=== PATIENT | male | born 1990 | race Caucasian/White ===

== ENCOUNTER 2017-06-01 22:38 | Inpatient (IN) | payer SELFPAY ==
--- NOTE | 2017-06-01 23:41 | EDPHY ---
H & P Stated Complaint: "think I got poisoned 2 days ago" Source: Patient Exam Limitations: No limitations - Personal History Current Tetanus/Diphtheria Vaccine: Yes - Medical/Surgical History Hx Asthma: No Hx Chronic Respiratory Disease: No Hx Diabetes: No Hx Cardiac Disease: No Hx Renal Disease: No Hx Cirrhosis: No Hx Alcoholism: No Hx HIV/AIDS: No Hx Splenectomy or Spleen Trauma: No Other PMH: hypoparathyroid, hypothyroidism - Social History Smoking Status: Former smoker Time Seen by Provider: 06/01/17 23:12 HPI/ROS: HPI The patient presents with concern that he has been poisoned. He spoke with his mother and [facility] in both encouraged him to come to the emergency department for evaluation. The patient says that a few days ago at [facility] his friends were joking with each other and seemed to be conspiring against him, he is concerned they may have put some poison into in his meal. He noticed that they were not eating leftovers from the meal and this raised his suspicion. Also, he noticed that his friends were burning a candle that had a metallic silver appearance to it. He did some research and felt this may be a mercury containing poison that may hurt him. He says over the last few days he has been reflecting on his life over the last few years. He says many years ago he was dating a woman and was in a very toxic relationship. He feels as if she is sabotaging him. He says he is feeling paranoid in general. Over the last 1 week he has felt extreme highs and lows. He is not sleeping much or eating much. As he was concerned that marijuana use could be causing his paranoia, so he stopped 2 days ago, but feels the same. He says he is feeling suicidal and wants to return home to [place] where he is from. He moved out here 1 and half months ago to live with a friend. He does have a history of depression and suicidality and high school. He is not on any medications for this. 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 REVIEW OF SYSTEMS Constitutional: No fever, no chills. Eyes: No discharge. ENT: No sore throat. Cardiovascular: No chest pain, no palpitations. Respiratory: No cough, no shortness of breath. Gastrointestinal: No abdominal pain, no vomiting. Genitourinary: No hematuria. Musculoskeletal: No back pain. Skin: No rashes. Neurological: No headache. PMHx: Hypoparathyroidism, last had his calcium checked in [place] about a month and a half ago with calcium of 4.4, says his calcium normally run at about 6, intermittently compliant with supplemental calcium Soc Hx: Recently relocated from [place], marijuana use, no alcohol use recently, denies drug use PHYSICAL General Appearance: Alert, no distress Eyes: Pupils equal and round no pallor or injection ENT, Mouth: Mucous membranes moist Respiratory: There are no retractions, lungs are clear to auscultation Cardiovascular: Regular rate and rhythm Gastrointestinal: Abdomen is soft and non-tender, no masses, bowel sounds normal Neurological: A&O, moves all extremities Skin: Warm and dry, no rashes Musculoskeletal: Neck is supple non tender Extremities: symmetrical, full range of motion Psychiatric: Patient is oriented X 3, there is no agitation, there is poor eye contact, tearful occasionally during exam (Ileana Gomez) Constitutional: Initial Vital Signs Temperature (C) 36.6 C 06/01/17 22:40 Heart Rate 82 06/01/17 22:40 Respiratory Rate 18 06/01/17 22:40 Blood Pressure 111/81 H 06/01/17 22:40 O2 Sat (%) 96 06/01/17 22:40 O2 Delivery Mode Room Air Allergies/Adverse Reactions: No Known Allergies Allergy (Unverified 06/01/17 22:44) Home Medications: Medication Instructions Recorded CALCIUM 06/01/17 PHOSLO 06/01/17 Medical Decision Making - Diagnostics EKG Interpretation: EKG: Complete interpretation has been separately recorded in the [facility] archive. Summary impression: NSR, QTc 466 (Ileana Gomez) Differential Diagnosis: 26-year-old man, history of depression and high school, hypoparathyroidism, presenting with increasing paranoia over last few days, concern about being poisoned, with suicidal thoughts without any clear plan. Wants to return to [place] to his family, however does not have the means to do so. Differential diagnosis includes decompensated depression, psychosis, marijuana abuse. In the emergency department, placement was placed on a detainer. Labs were checked and did reveal low calcium, on par with prior levels per his report. Is not surprising given his lack of calcium supplementation lately. He does not seem to have any symptoms of hypocalcemia. EKG was performed and did reveal QT prolongation at about 500. Because of this, he was given calcium gluconate 2 g IV, repeat calcium was slightly improved though not normal. I do not believe his low calcium is contributing to his current presentation. I consulted with the hospitalist about this, Dr. Umana. He explained that it may take several days to have the patient's calcium reach a normal level. The patient seems to be chronically hypocalcemic from his hypoparathyroidism. He recommends the patient get additional calcium in the emergency department in addition to vitamin-D. He does not recommend admission to the hospital given the patient is asymptomatic and this is a chronic problem for him. The patient was given additional calcium gluconate, repeat EKG was unremarkable. QTc has improved somewhat. He is deemed medically clear for psychiatric evaluation. At 7:00 a.m., the case is signed out to the oncoming provider Dr. Gupta. ( Ileana Gomez) Other Provider: I assumed care of the patient at 7 o'clock in the morning pending psychiatric evaluation. I reviewed the patient's presentation and briefly evaluated the patient. He is acutely psychotic. I have placed the patient on M1 psychiatric hold. The patient was medically cleared by Dr. Gomez and is currently pending psychiatric evaluation.. Update at 10:50 a.m.: The patient was evaluated by Psychiatry and has been accepted for inpatient psychiatric admission at [facility] by Dr. Thomas. I have filled out the EMTALA transfer form. Clinical impression is bipolar mood disorder with acute psychosis. (Oleksandr Gupta) - Data Points Laboratory Results: Laboratory Results 06/01/17 23:45 06/01/17 23:45 06/02/17 06/02/17 06/02/17 03:40 01:15 01:15 WBC RBC Hgb Hct MCV MCH MCHC RDW Plt Count MPV Neut % (Auto) Lymph % (Auto) Barton % (Auto) Eos % (Auto) Baso % (Auto) Nucleat RBC Rel Count Absolute Neuts (auto) Absolute Lymphs (auto) Absolute Monos (auto) Absolute Eos (auto) Absolute Basos (auto) Absolute Nucleated RBC Immature Gran % Immature Gran # Sodium Potassium Chloride Carbon Dioxide Anion Gap BUN Creatinine Estimated GFR Glucose Calcium Ionized Calcium 0.74 MMOL/L L* MMOL/L 0.64 MMOL/L L* MMOL/L (1.12-1.30) (1.12-1.30) Phosphorus TSH Urine Opiates Screen NEGATIVE (NEGATIVE) Urine Barbiturates NEGATIVE (NEGATIVE) Ur Phencyclidine Scrn NEGATIVE (NEGATIVE) Ur Amphetamine Screen NEGATIVE (NEGATIVE) U Benzodiazepines Scrn NEGATIVE (NEGATIVE) Urine Cocaine Screen NEGATIVE (NEGATIVE) U Marijuana (THC) Screen NON-NEGATIVE H (NEGATIVE) Ethyl Alcohol 06/01/17 06/01/17 23:45 23:45 WBC 7.14 10^3/uL 10^3/uL (3.80-9.50) RBC 4.80 10^6/uL 10^6/uL (4.40-6.38) Hgb 15.8 g/dL g/dL (13.7-17.5) Hct 42.4 % % (40.0-51.0) MCV 88.3 fL fL (81.5-99.8) MCH 32.9 pg pg (27.9-34.1) MCHC 37.3 g/dL H g/dL (32.4-36.7) RDW 12.2 % % (11.5-15.2) Plt Count 207 10^3/uL 10^3/uL (150-400) MPV 9.7 fL fL (8.7-11.7) Neut % (Auto) 66.9 % % (39.3-74.2) Lymph % (Auto) 21.3 % % (15.0-45.0) Barton % (Auto) 8.8 % % (4.5-13.0) Eos % (Auto) 2.1 % % (0.6-7.6) Baso % (Auto) 0.8 % % (0.3-1.7) Nucleat RBC Rel Count 0.0 % % (0.0-0.2) Absolute Neuts (auto) 4.77 10^3/uL 10^3/uL (1.70-6.50) Absolute Lymphs (auto) 1.52 10^3/uL 10^3/uL (1.00-3.00) Absolute Monos (auto) 0.63 10^3/uL 10^3/uL (0.30-0.80) Absolute Eos (auto) 0.15 10^3/uL 10^3/uL (0.03-0.40) Absolute Basos (auto) 0.06 10^3/uL 10^3/uL (0.02-0.10) Absolute Nucleated RBC 0.00 10^3/uL 10^3/uL (0-0.01) Immature Gran % 0.1 % % (0.0-1.1) Immature Gran # 0.01 10^3/uL 10^3/uL (0.00-0.10) Sodium 141 mEq/L mEq/L (134-144) Potassium 4.6 mEq/L mEq/L (3.5-5.2) Chloride 101 mEq/L mEq/L (97-110) Carbon Dioxide 23 mEq/l mEq/l (22-31) Anion Gap 17 mEq/L H mEq/L (8-16) BUN 20 mg/dL mg/dL (7-23) Creatinine 0.8 mg/dL mg/dL (0.7-1.3) Estimated GFR > 60 Glucose 93 mg/dL mg/dL (70-100) Calcium 5.2 mg/dL L* mg/dL (8.5-10.4) Ionized Calcium Phosphorus 7.1 mg/dL H mg/dL (2.5-4.5) TSH 2.130 uIU/mL uIU/mL (0.465-4.680) Urine Opiates Screen Urine Barbiturates Ur Phencyclidine Scrn Ur Amphetamine Screen U Benzodiazepines Scrn Urine Cocaine Screen U Marijuana (THC) Screen Ethyl Alcohol < 10 mg/dL mg/dL (0-10) Medications Given: Discontinued Medications Cholecalciferol (Vitamin D) 2,000 units PO EDNOW ONE Stop: 06/02/17 04:31 Last Admin: 06/02/17 04:49 Dose: 2,000 units Calcium Gluconate (Calcium Gluconate 1 Gm (Premix)) 50 mls @ 100 mls/hr IV EDNOW ONE Stop: 06/02/17 01:12 Last Admin: 06/02/17 01:25 Dose: 50 mls Calcium Gluconate (Calcium Gluconate 1 Gm (Premix)) 50 mls @ 100 mls/hr IV ONCE ONE Stop: 06/02/17 02:03 Last Admin: 06/02/17 02:17 Dose: 50 mls Calcium Gluconate 2 gm/ Sodium (Chloride) 70 mls @ 140 mls/hr IV EDNOW ONE Stop: 06/02/17 05:29 Last Admin: 06/02/17 04:50 Dose: 70 mls Departure - Departure Disposition: [facility] IP Clinical Impression: Suicidal ideation, Hypocalcemia, Paranoia Hypoparathyroidism Qualifiers: Hypoparathyroidism type: idiopathic Qualified Code(s): E20.0 - Idiopathic hypoparathyroidism Bipolar mood disorder Qualifiers: Active/Remission status: currently active Current bipolar episode type: mixed Current episode severity: severe Psychotic features: with psychotic features Qualified Code(s): F31.64 - Bipolar disorder, current episode mixed, severe, with psychotic features Psychosis Qualifiers: Schizoaffective disorder type: bipolar Condition: Fair Instructions: Depression (ED) Referrals: NONE *PRIMARY CARE P,. [Primary Care Provider] - As per Instructions
[2017-06-02 00:12] LABS: % IMMATURE GRANULYOCYTES 0.1 % (0.0-1.1); ABSOLUTE IMMATURE GRANULOCYTES 0.01 10^3/uL (0.00-0.10); ADD DIFF? NO; ADD MORPH? NO; ADD SCAN? NO; ATYPICAL LYMPHOCYTE FLAG 0 (0-99); FRAGMENT RBC FLAG 0 (0-99); HEMATOCRIT 42.4 % (40.0-51.0); HEMOGLOBIN 15.8 g/dL (13.7-17.5); LEFT SHIFT FLG 0 (0-99); LIPEMIA HEMOLYSIS FLAG 90 (0-99); MEAN CELL HEMOGLOBIN 32.9 pg (27.9-34.1); MEAN CELL HEMOGLOBIN CONCENTR. 37.3 g/dL (32.4-36.7); MEAN CELL VOLUME 88.3 fL (81.5-99.8); MEAN PLATELET VOLUME 9.7 fL (8.7-11.7); PLATELET CLUMPS FLAG 0 (0-99); PLATELET COUNT 207 10^3/uL (150-400); RED CELL DISTRIBUTION WIDTH 12.2 % (11.5-15.2)
[2017-06-02 00:17] LABS: ANION GAP 17 mEq/L (8-16); CARBON DIOXIDE 23 mEq/l (22-31); CHLORIDE 101 mEq/L (97-110); CREATININE 0.8 mg/dL (0.7-1.3); ETHANOL SERUM < 10 mg/dL (0-10); GLOMERULAR FILTRATION RATE > 60; GLUCOSE 93 mg/dL (70-100); POTASSIUM 4.6 mEq/L (3.5-5.2); SODIUM 141 mEq/L (134-144)
[2017-06-02 00:18] LABS: CALCIUM 5.2 mg/dL (8.5-10.4)
--- NOTE | 2017-06-02 00:41 | CPEKG ---
Heart Rate: 54 RR Interval: 1111 P-R Interval: 204 QRSD Interval: 106 QT Interval: 540 QTC Interval: 512 P [place]: 29 QRS [place]: -35 T Wave [place]: -16 EKG Severity - ABNORMAL ECG - EKG Impression: SINUS RHYTHM EKG Impression: BORDERLINE IVCD WITH LAD EKG Impression: NONSPECIFIC T ABNORMALITIES, INFERIOR LEADS EKG Impression: PROLONGED QT INTERVAL Electronically Signed By: Oleksandr Gupta 02-Jun-2017 11:05:52
[2017-06-02] MEDS ORDERED: CALCIUM GLUCONATE 50 ML IV ONE ×2 (00:43→01:34)
[2017-06-02 01:27] LABS: IONIZED CALCIUM 0.64 MMOL/L (1.12-1.30)
[2017-06-02 03:54] LABS: IONIZED CALCIUM 0.74 MMOL/L (1.12-1.30)
[2017-06-02] MEDS ORDERED: CALCIUM GLUCONATE 2 GM in NS 50 ML IV ONE ×2 (04:28→05:00)
[2017-06-02] MEDS ORDERED: CHOLECALCIFEROL VIT D3 2,000 UNITS TAB/CAP PO ONE (04:30)
[2017-06-02] MEDS ORDERED: OLANZapine DISINTEGR 10 MG TAB PO PRN (12:41)
[2017-06-02] MEDS ORDERED: NICOTINE POLACRILEX 2 MG GUM B PRN (12:41)
[2017-06-02] MEDS ORDERED: MAG HYDROX/AL HYDROX/SIMETH 30 ML UDCUP PO PRN (12:41)
[2017-06-02] MEDS ORDERED: LORazepam 0.5 MG TAB PO PRN (12:41)
[2017-06-02] MEDS ORDERED: OLANZapine DISINTEGR 5 MG TAB PO ONE (14:12)
--- NOTE | 2017-06-02 15:15 | BAPA ---
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 He is originally from [place]. CHIEF COMPLAINT: "I want to know if I was poisoned." HISTORY OF PRESENT ILLNESS: The patient is a poor historian. Basically, the patient reports that he moved to [place] about 2 months ago to live with a friend from [place] whom he had grown up with. This friend moved to [place] 2 years ago. The patient reports that prior to coming to [place], he had experienced paranoia for about four years, that an ex-girlfriend was attempting to destroy his life, was attempting to cause him to kill himself, and was messing with his thoughts and his emotions. After arriving in [place] 2 months ago, he felt well. He said he was using yoga daily. He was also hiking daily and working and had an elevated mood, elevated energy, elevated activity, and decreased need for sleep. He then started smoking cannabis daily. 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 He reports around Thanksgiving having strange ideas that his roommates and their friends who were there for Thanksgiving dinner were poisoning him with mercury. He says this was based on ideas that he could read their minds, that they were thinking about poisoning him, and by odd movements they were making, were somehow related to him. He also reported finding droplets of a silver candle stick and felt like this may have been mercury used to poison him. He reports that he fears that he is losing his mind and that he is going insane. He reports racing thoughts, mood swings, brief suicidal thoughts to jump off a building or bridge. He denies any violent thoughts. He reports he feels anxious and fearful and has had trouble sleeping for several weeks. The patient's mother on the phone reports that the patient has had odd behaviors since a young age. Mother reports that the patient has had mood swings where he is sometimes elevated, euphoric, and stays up late at night. Other times he is irritable, agitated, yelling, and "having a tantrum," and other times making paranoid statements about being followed or monitored or harassed. The patient also has a history of depression according to the patient's mother. SUBSTANCE ABUSE HISTORY: The patient reports a long history of substance abuse for several years. He reports he used to drink alcohol daily to the point that he would feel physically ill and miss work. He reported he stopped drinking alcohol about 4 months ago. He reported he was drinking daily for up to 6 months at a time in the past. He reports he is using cannabis daily for the past 2 months that he has lived in [place]. He reports using LSD approximately 10 times in the past. He also reports abusing methamphetamines for "2 binges" in the past. He has not used any amphetamines, LSD, or hallucinogenic mushrooms recently. He reports he used to abuse ecstasy as well as hallucinogenic mushrooms in the past. PAST PSYCHIATRIC HISTORY: The patient denies any past psychiatric hospitalizations or any recent or past mental health treatment. However, he does report approximately a year and a half ago he stood on a bridge and cut his left arm while having suicidal thoughts and planned to jump off the bridge. He changed his mind and did not further harm himself or seek treatment. He also reports a year ago he had suicidal thoughts and held a gun to his head but didn't fire the gun. The patient denies other suicide attempts. He denies any history of violence toward others. He reports past arrests for failing to stop for an officer well long boarding, which is a form of skateboarding, in [place] around age 19. He also reports 1 arrest for cannabis possession in [place] several years ago. He denies any history of violent crimes or any other arrests. He denies being on probation or parole. The patient denies any past psychiatric medication trials. PAST MEDICAL HISTORY: The patient denies any traumatic brain injuries or seizures. He has a history of hypoparathyroidism with hypocalcemia since age 17. He reports he normally takes calcium with vitamin D twice a day for this condition. He reports he has congenital hypoparathyroidism and has never had any type of surgery on his neck. Of note, in the emergency department, the patient has hypocalcemia. The patient did receive oral vitamin D as well as intravenous calcium for the treatment of hypocalcemia in the emergency department. His EKG showed prolonged QTc interval and IVCD thought to be be secondary to hypocalcemia. ALLERGIES: No known drug allergies. MEDICATIONS: Calcium with vitamin D twice a day is his only current medication prior to admission. SOCIAL HISTORY: The patient was raised by his mother and stepfather whom he refers to as his father in [place]. He denies abuse or neglect during childhood. He graduated from high school. 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 He has never been , has no children, has never been in the . He lives with 3 male roommates. The patient did sign a release information for his mother in [place], who was contacted from the inpatient unit. Patient denies currently owning a gun. FAMILY HISTORY: The patient reports his mother has a history of depression, anxiety, and he has a half-sister who has problems with depression. He denies any family history of suicide or severe mental illness. The notes from the emergency room indicate the patient's uncle had a history of alcoholism. PHYSICAL EXAMINATION: VITAL SIGNS: Blood pressure 125/79, heart rate 72, respiratory rate 14, pulse oximetry 98% on room air, temperature afebrile. MENTAL STATUS: He is an alert, white male in no acute distress. He is ambulatory. He has fair eye contact. He has a tattoo on his left forearm. He has no focal weakness. He appears healthy. His speech is regular rate and rhythm. His thoughts are tangential and rambling. He describes paranoid ideas of reference to being watched or monitored by others as well as being poisoned by people in his household as well as paranoia that an ex-girlfriend is attempting to cause him to go insane and cause him to kill himself. He describes his mood as "upset." His affect is preoccupied and distracted. His speech is with a soft voice, regular rate and rhythm. He denies auditory or visual hallucinations. He endorses paranoia with paranoid ideas of references. He may have been having visual hallucinations prior to admission. His insight appears to be limited. His judgment appears to be impaired. LABS: White blood cell count 7.1, hemoglobin 15.8, platelet 207. Sodium 141, potassium 4.6, creatinine 0.8, glucose 93, calcium was initially 5.2, ionized calcium was 0.74. These are both low. Phosphorus 7.1. TSH 2.1. Urine drug screen was positive for cannabis only. ASSESSMENT: 1. Unspecified schizophrenia spectrum disorder. Rule out cannabis related psychotic disorder. 2. Unspecified bipolar disorder. 3. Cannabis use disorder, severe. 4. History of alcohol, hallucinogen, and stimulant use disorders in the past. 5. Hypoparathyroidism with hypocalcemia. 6. Suicidal ideation. Overall, the assessment is that patient has a history of mood symptoms with depression and past suicidal ideation as well as probably hypomanic symptoms in the past. He has been abusing multiple substances over several years. Most recently, he has been using cannabis daily for the past 2 months. He is currently having paranoid ideas of reference as well as probable paranoid delusions that he is being poisoned. He also has paranoia regarding a female ex -girlfriend who lives in [place]. The patient is illogical and tangential with his thinking. The patient reports he is willing to take medication and get treatment in the unit, however. PLAN: 1. The patient is on M1 hold due to possible danger to himself as he reportedly made statements about jumping off a building or a bridge. He also reported a past suicide attempt of cutting himself about a year ago and possibly holding a gun to his head a year ago. The patient also appears to be gravely disabled due to psychotic thought disorder. 2. The patient is agreeable to start olanzapine 5 mg by mouth 1 tablet sublingual now and then another 5 mg tonight for psychotic disorder and possible bipolar disorder. We will then reassess the patient's symptoms tomorrow. The patient was given a handout from the [employer] on olanzapine. We reviewed the risk of tardive dyskinesia, neuroleptic malignant syndrome, extrapyramidal side effects, metabolic syndrome , and sedation with olanzapine as well as the risk of drug interaction. 3. I ordered p.r.n. olanzapine 5mg or p.r.n. agitation or psychosis, and hydroxyzine 25mg PRN for anxiety while in the unit. 4. The patient will be given calcium carbonate 500 mg p.o. twice daily along with vitamin D 2000 units p.o. twice daily for his hypocalcemia and hypoparathyroidism. The patient will be seen by an internal medicine provider tomorrow to clarify if the patient should have his calcium level and phosphorus rechecked. 5. Monitor the patient's ability to function and interact appropriately in the unit. If the patient does decide to stay in [place] after discharge, we will refer to [facility]. If possible, we will coordinate care with the patient's mother and stepfather regarding assisting him in return to [place] so that he could receive their support in getting outpatient mental health treatment after discharge. 6. I discussed extensively with the patient the risk of cannabis causing anxiety, panic, paranoia, hallucinations, and disorganized thinking and encouraged the patient to consider sobriety after discharge. /[id number]/MODL MTDD
[2017-06-02] MEDS: CALCIUM CARBONATE 500 MG TAB PO SCH (20:57)
[2017-06-02] MEDS: CHOLECALCIFEROL VIT D3 2,000 UNITS TAB/CAP PO SCH (20:58)
[2017-06-02] MEDS ORDERED: OLANZapine DISINTEGR 5 MG TAB PO SCH (21:00)
--- NOTE | 2017-06-03 07:38 | CPEKG ---
Heart Rate: 46 RR Interval: 1304 P-R Interval: 192 QRSD Interval: 110 QT Interval: 532 QTC Interval: 466 P Logan: 19 QRS Logan: -24 T Wave [place]: -11 EKG Severity - ABNORMAL ECG - EKG Impression: SINUS BRADYCARDIA EKG Impression: NONSPECIFIC INTRAVENTRICULAR CONDUCTION DELAY Electronically Signed By: Ileana Gomez 03-Jun-2017 07:39:47
--- NOTE | 2017-06-03 09:17 | SOAPPROG ---
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 Patient has a history of depressive symptoms, hypomania, and substance abuse for several years with one past suicide attempt (cut arm one year ago). Patient appears disorganized with paranoia and SI but compliant with Olanzapine. Plan: Increase scheduled Olanzapine ODT 10mg PO QHS Monitor behavior, paranoia, SI Patient on M-1 hold. Consider switch to voluntary status tomorrow or short term certification Continue Calcium and Vitamin D for hypocalcemia 06/03/17 09:17 Subjective: CC: 'empty, OK, suicidal if I'm poisoned' Reports SI due to fear of being poisoned with mercury or fear that a woman in [place] is attempting to 'make me go insane.' Denies plan to hurt self on unit. Reports tolerating Olanzapine yesterday without side effects and slept well overnight. Denies AH or VH. Reports anxiety and unsure if he wants to live or . Then reports wanting to travel back to [place] to see parents. Patient reported to nurses yesterday that he wanted to see parents prior to killing himself. Objective: Vital Signs Temp Pulse Resp BP Pulse Ox 36.7 C 88 14 100/67 98 06/03/17 06:00 06/03/17 06:00 06/03/17 06:00 06/03/17 06:00 06/03/17 06:00 Alert WM, ambulatory without slowing or tremor. Speech RRR. Mood 'empty, OK, suicidal if I'm poisoned' Affect odd, restricted, brief smiling with humor, later internal preoccupation. Reports SI due to fear of being poisoned with mercury or fear that a woman in [place] is attempting to 'make me go insane.' Denies plan to harm self on unit. Denies AH or VH or HI. Limited insight. Judgment impaired. Staff report patient complied with Olanzapine ODT 5mg twice yesterday. Patient slept overnight, isolative to room. - Time Spent With Patient Time Spent With Patient: 25 minutes - Pending Discharge Pending Discharge Within 24 Hours: No Pending Discharge Within 48 Hours: No ICD10 Worksheet Patient Problems: Problems Problem Status Onset Bipolar mood disorder Acute Cannabis use disorder, moderate, dependence Acute Hypocalcemia Acute Hypoparathyroidism Acute Paranoia Acute Psychosis Acute Suicidal ideation Acute
[2017-06-03] MEDS ORDERED: OLANZapine DISINTEGR 5 MG TAB PO SCH (09:23)
[2017-06-03] MEDS: CALCIUM CARBONATE 500 MG TAB PO SCH ×2 (10:38→20:10)
[2017-06-03] MEDS: CHOLECALCIFEROL VIT D3 2,000 UNITS TAB/CAP PO SCH ×2 (10:38→20:10)
[2017-06-03] MEDS: hydrOXYzine HCL 25 MG TAB PO PRN ×2 (11:07→20:10)
[2017-06-03] MEDS: CALCIUM ACETATE 667 MG CAP PO SCH (18:16)
[2017-06-03] MEDS: OLANZapine DISINTEGR 10 MG TAB PO SCH (20:10)
--- NOTE | 2017-06-04 00:02 | BCON ---
[f rep st] BEHAVIORAL HEALTH CONSULTATION INTERNAL MEDICINE CONSULTATION DATE OF CONSULTATION: 06/03/2017 REFERRING PHYSICIAN: HUGO PANDEY MD REASON FOR REFERRAL: Medical clearance for inpatient [facility] stay. HISTORY OF PRESENT ILLNESS: This patient came to the emergency department with concern that he had been poisoned. He thinks that his roommates may have poisoned him with mercury. He denies any acute symptoms of mercury toxicity, including no neurologic changes or tremor and no vision changes. He has chronic hypoparathyroidism and hypocalcemia which gives him chronic tingling in the extremities, and this has not changed. He reports he has been noncompliant with his medications for the hypoparathyroidism. Otherwise, he is without any acute complaints. PAST MEDICAL HISTORY: Hypoparathyroidism which he reports was diagnosed at age 15. PAST SURGICAL HISTORY: He has had wisdom teeth extraction. MEDICATIONS: He was taking calcium and vitamin D combination, PhosLo, and hydrochlorothiazide, but he had been noncompliant with his medications. SOCIAL HISTORY: He has recently moved from [place]. He lives with roommates in [place]. He is a marijuana user. 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 FAMILY HISTORY: Noncontributory for the purpose of this evaluation. REVIEW OF SYSTEMS: Other than as in HPI, he denies pain, cough, dyspnea, nausea , vomiting, constipation, or diarrhea. Otherwise, a 10-point review of systems is negative. PHYSICAL EXAM: VITAL SIGNS: Blood pressure is 100/67, heart rate is 88, respiratory rate is 14, oxygen saturation is 98% on room air. Temperature is 36.7 degrees centigrade. His weight is 74.4 kg for a body mass index of 22.9. GENERAL: This is a well-nourished, well-developed man sitting in a chair at the table in his room, cooperative and in no acute distress. HEENT: Extraocular movements are intact. Pupils are equal, round, and reactive to light. Mucous membranes are moist. Dentition is in good condition. There are no oropharyngeal mucosal lesions and no posterior oropharyngeal mucus. NECK: Supple. HEART: Regular rate and rhythm with no murmurs, rubs, or gallops. LUNGS: Clear to auscultation bilaterally. ABDOMEN: Benign. NEUROLOGIC: He is alert and oriented x3. Cranial nerves 2-12 are grossly intact. There is no focal weakness, and sensation is intact to light touch. LABORATORY STUDIES: Drawn in the emergency department, CBC was overall within normal limits. He had a very slight elevation of his anion gap at 17, of no clinical significance. Calcium was low at 5.2, and phosphorus was high at 7.1. He received calcium gluconate by IV in the emergency department, and his ionized calcium level was subsequently 0.64 and then finally 0.74. TSH was normal at 21.3. Toxicology in the serum was negative for ethyl alcohol, and the urine was non-negative for marijuana but otherwise negative for substances of abuse. CBC was overall within normal limits but for a slightly high mean cellular hemoglobin content of 37.3, of no clinical significance. ASSESSMENT/RECOMMENDATIONS: 1. Mental health issues pending further evaluation and management per Psychiatry and the mental health team. 2. Congenital hypoparathyroidism. I will resume his home dose of PhosLo for his elevated phosphorus. Continue calcium and vitamin D as currently ordered. He can follow up as an outpatient regarding adequacy of treatment for hypocalcemia and hyperphosphatemia. If treatment is not adequate, consider an activated vitamin D such as calcitriol. Given his blood pressures, I will not initiate hydrochlorothiazide at this point. He does not report a history of kidney stones. If there were kidney stones, there would be a stronger indication for the hydrochlorothiazide. 3. Marijuana abuse. I see no medical contraindications to this patient's continued stay on the inpatient behavioral health unit or to any psychiatric medications or procedures. Thank you very much for including me in the care of this patient, and please do not hesitate to contact me or the hospitalist service should there be need for further medical evaluation. /[id number]/MODL MTDD
--- NOTE | 2017-06-04 09:10 | SOAPPROG ---
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 Patient has a history of depressive symptoms, hypomania, and substance abuse for several years with one past suicide attempt (cut arm one year ago). Patient appears euthymic and denies SI. Patient has some residual paranoia and tangential thoughts but is cooperative with medications on unit and has been calm, but got PRN Hydroxyzine for anxiety yesterday. Plan: Continue Olanzapine ODT 10mg PO QHS Continue Hydroxyzine 25mg PRN anxiety and Olanzapine ODT PRN agitation/paranoia Monitor behavior, paranoia, judgment Continue Calcium, Vitamin D, PhosLo for hypocalcemia and hyperphosphatemia. Mercury level pending Patient agrees to voluntary treatment. Discontinue self-harm precautions. Discussed dangers of cannabis causing anxiety and psychosis 06/04/17 09:12 Subjective: "I'm OK.' Patient reports sleeping well overnight and eating breakfast, cooperated with AM blood draw. Denies feeling slowed or sedated by medication. Took PRN Hydroxyzine yesterday for anxiety. Reports prior to admission fearing that roommates were poisoning him with mercury, reports that he was reading their minds and that a silver candlestick was a message that he was poisoned. Reports a long history of mood swings prior to admission but today feels well and hopeful, denies suicidal thoughts. Denies AH on unit. Denies paranoia about food or medication on unit. Reports he wants to stay in [place] after discharge but wants to find a new apartment; reports he has a total of $1000 savings but parents may help him with an apartment deposit. Objective: Vital Signs Temp Pulse Resp BP Pulse Ox 36.2 C 68 16 128/66 H 98 06/04/17 06:00 06/04/17 06:00 06/04/17 06:00 06/04/17 06:00 06/04/17 06:00 Alert WM, cooperative and pleasant. Speech soft RRR, rambling at times. Thoughts tangential and perseverative. Denies SI or HI or AH. Mood 'good' affect euthymic and smiling. Reports paranoia about being poisoned with mercury and paranoid ideas of reference prior to admission, denies fear of being poisoned on unit. Reports being able to read peoples minds on unit. Limited insight. Appropriate judgment. Mercury level pending - Time Spent With Patient Time Spent With Patient: 30 minutes - Pending Discharge Pending Discharge Within 24 Hours: No Pending Discharge Within 48 Hours: No ICD10 Worksheet Patient Problems: Problems Problem Status Onset Bipolar mood disorder Acute Cannabis use disorder, moderate, dependence Acute Hypocalcemia Acute Hypoparathyroidism Acute Paranoia Acute Psychosis Acute Suicidal ideation Acute
[2017-06-04] MEDS: CALCIUM CARBONATE 500 MG TAB PO SCH (10:03)
[2017-06-04] MEDS: CALCIUM ACETATE 667 MG CAP PO SCH ×3 (10:03→21:41)
[2017-06-04] MEDS: CHOLECALCIFEROL VIT D3 2,000 UNITS TAB/CAP PO SCH ×2 (10:03→21:42)
[2017-06-04] MEDS: hydrOXYzine HCL 25 MG TAB PO PRN ×2 (10:05→16:44)
[2017-06-04] MEDS: ACETAMINOPHEN 325 MG TAB PO PRN (16:43)
[2017-06-04] MEDS: CALCITRIOL 0.25 MCG CAP PO SCH (21:41)
[2017-06-04] MEDS: OLANZapine DISINTEGR 10 MG TAB PO SCH (21:42)
[2017-06-05] MEDS: CALCIUM ACETATE 667 MG CAP PO SCH ×2 (08:41→20:35)
[2017-06-05] MEDS: CHOLECALCIFEROL VIT D3 2,000 UNITS TAB/CAP PO SCH ×2 (08:42→20:36)
--- NOTE | 2017-06-05 09:18 | SOAPPROG ---
SOAP Progress Note Assessment/Plan: Assessment: Schizoaffective Disorder Cannabis Use Disorder - severe History of stimulant, hallucinogen, and alcohol use disorders Hypoparathyroidism - on Calcium/PhosLo, Vitamin D, Calcitrol, HCTZ Patient admitted on M-1 hold for psychotic symptoms (paranoid ideas of reference , fear of being poisoned with mercury) and suicidal thoughts to jump of a bridge. Patient has a history of depressive symptoms, hypomania, and substance abuse for several years with one past suicide attempt (cut arm one year ago). Patient was using cannabis daily prior to admission. Patient appears euthymic but has some bizarre and paranoid thoughts, some continued SI related to fear of being poisoned with mercury by roommate. Plan: Patient currently voluntary Increase Olanzapine ODT 5mg SL QAM and 10mg SL QHS Mercury level pending Discussed dangers of cannabis causing anxiety and psychosis Monitor behavior, paranoia, SI 06/05/17 09:21 Subjective: Reports feeling 'alright.' Denies SI 'unless I am poisoned and someone is trying to make me go insane.' Reports continued fear that he was poisoned by roommate prior to admission. Reports feeling safe on unit and denies being fearful of staff. 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 Reports talking to parents on the phone. Denies mood swings or agitation. Reports prior to admission being stalked by [employer], being harrassed 'by the [employer],' and discovering a secret code involving the numbers 3,6,9 and having a special connection with numerology. Denies sedation, dizziness, tremors, or feeling slowed by medication. Objective: Vital Signs Temp Pulse Resp BP Pulse Ox 36.4 C 69 16 109/70 97 06/05/17 02:25 06/05/17 02:25 06/05/17 02:25 06/05/17 02:25 06/05/17 02:25 Alert WM, ambulatory, cooperative. No tremors. Speech soft RRR. Thoughts tangential and rambling at times. Mood 'alright' affect odd smiling. Reports paranoia regarding numerology, [employer], '[employer],' and being poisoned with mercury. Denies SI 'unless I am poisoned and someone is trying to make me go insane.' Denies HI or AH. Insight limited/poor. Judgment questionable. Staff report patient cooperative with medication, got PRN Hydroxyzine yesterday afternoon for anxiety. Slept overnight. Isolative to room. - Time Spent With Patient Time Spent With Patient: 30 minutes - Pending Discharge Pending Discharge Within 24 Hours: No Pending Discharge Within 48 Hours: No ICD10 Worksheet Patient Problems: Problems Problem Status Onset Schizoaffective disorder Acute Cannabis use disorder, moderate, dependence Acute Suicidal ideation Acute Hypoparathyroidism Acute Hypocalcemia Acute
[2017-06-05] MEDS: OLANZapine DISINTEGR 5 MG TAB PO SCH (09:45)
[2017-06-05] MEDS: HYDROCHLOROTHIAZIDE 25 MG TAB PO SCH (13:04)
[2017-06-05] MEDS: MAGNESIUM HYDROXIDE 30 ML UDCUP PO PRN (18:54)
[2017-06-05] MEDS: CALCITRIOL 0.25 MCG CAP PO SCH (20:35)
[2017-06-05] MEDS: OLANZapine DISINTEGR 10 MG TAB PO SCH (20:36)
[2017-06-06 06:37] VITALS: O2SAT 96
[2017-06-06] MEDS: HYDROCHLOROTHIAZIDE 25 MG TAB PO SCH (09:53)
[2017-06-06] MEDS: CALCIUM ACETATE 667 MG CAP PO SCH ×2 (09:53→20:42)
[2017-06-06] MEDS: OLANZapine DISINTEGR 5 MG TAB PO SCH (09:54)
[2017-06-06] MEDS: CHOLECALCIFEROL VIT D3 2,000 UNITS TAB/CAP PO SCH ×2 (09:55→20:42)
--- NOTE | 2017-06-06 14:03 | SOAPPROG ---
SOAP Progress Note Assessment/Plan: Assessment: Per Dr. Valverde's notes: Assessment: Schizoaffective Disorder Cannabis Use Disorder - severe History of stimulant, hallucinogen, and alcohol use disorders Hypoparathyroidism - on Calcium/PhosLo, Vitamin D, Calcitrol, HCTZ Patient admitted on M-1 hold for psychotic symptoms (paranoid ideas of reference , fear of being poisoned with mercury) and suicidal thoughts to jump of a bridge. Patient has a history of depressive symptoms, hypomania, and substance abuse for several years with one past suicide attempt (cut arm one year ago). Patient was using cannabis daily prior to admission. Patient appears euthymic but has some bizarre and paranoid thoughts, some continued SI related to fear of being poisoned with mercury by roommate. Plan: Patient currently voluntary Increase Olanzapine ODT 5mg SL QAM and 10mg SL QHS Mercury level pending Discussed dangers of cannabis causing anxiety and psychosis Monitor behavior, paranoia, SI 06/06/17 14:00 1. Patient denies feeling paranoid about anything on unit. He is only worried about roommates poisoning him. 2. Patient denies any SI/HI. 3. CCM - patient agrees to continue taking Zyprexa voluntarily. 4. Mercury level still pending - will take up to a week for results Subjective: Met with patient, reviewed chart and d/w staff. Patient is participating in group therapy and milieu activities. He says he feels "better" since coming to hospital. He is just glad "someone is taking me seriously" about the suspected poisoning. He says, "I know I sound like a broken record" but he really does believe he has been poisoned. He says he is anxiously looking forward to getting lab results. He denies any thoughts, intent or plan to harm himself. Objective: Vital Signs Temp Pulse Resp BP Pulse Ox 36.5 C 60 12 111/62 96 06/06/17 06:00 06/06/17 06:00 06/06/17 06:00 06/06/17 06:00 06/06/17 06:00 MSE: Affect: Constricted Mood: "Better" TP: Linear for purposes of short conversation, illogical about poisoning TC: Denies SI/HI, still paranoid about roommates, but no fears about unit Insight/Judgment: Poor - Time Spent With Patient Time Spent With Patient: 20" - Pending Discharge Pending Discharge Within 24 Hours: No Pending Discharge Within 48 Hours: No ICD10 Worksheet Patient Problems: Problems Problem Status Onset Cannabis use disorder, moderate, dependence Acute Hypocalcemia Acute Hypoparathyroidism Acute Schizoaffective disorder Acute Suicidal ideation Acute
[2017-06-06] MEDS: ACETAMINOPHEN 325 MG TAB PO PRN (15:50)
[2017-06-06] MEDS: hydrOXYzine HCL 25 MG TAB PO PRN (16:40)
[2017-06-06] MEDS: OLANZapine DISINTEGR 10 MG TAB PO SCH (20:42)
[2017-06-06] MEDS: CALCITRIOL 0.25 MCG CAP PO SCH (20:42)
[2017-06-07 06:21] VITALS: RESP 14
[2017-06-07] MEDS: HYDROCHLOROTHIAZIDE 25 MG TAB PO SCH (09:13)
[2017-06-07] MEDS: MAGNESIUM HYDROXIDE 30 ML UDCUP PO PRN (09:13)
[2017-06-07] MEDS: OLANZapine DISINTEGR 5 MG TAB PO SCH (09:13)
[2017-06-07] MEDS: CALCIUM ACETATE 667 MG CAP PO SCH ×2 (09:13→20:34)
[2017-06-07] MEDS: CHOLECALCIFEROL VIT D3 2,000 UNITS TAB/CAP PO SCH ×2 (10:02→20:34)
--- NOTE | 2017-06-07 12:57 | SOAPPROG ---
SOAP Progress Note Assessment/Plan: Assessment: Per Dr. Valverde's notes: Assessment: Schizoaffective Disorder Cannabis Use Disorder - severe History of stimulant, hallucinogen, and alcohol use disorders Hypoparathyroidism - on Calcium/PhosLo, Vitamin D, Calcitrol, HCTZ Patient admitted on M-1 hold for psychotic symptoms (paranoid ideas of reference , fear of being poisoned with mercury) and suicidal thoughts to jump of a bridge. Patient has a history of depressive symptoms, hypomania, and substance abuse for several years with one past suicide attempt (cut arm one year ago). Patient was using cannabis daily prior to admission. Patient appears euthymic but has some bizarre and paranoid thoughts, some continued SI related to fear of being poisoned with mercury by roommate. Plan: Patient currently voluntary Increase Olanzapine ODT 5mg SL QAM and 10mg SL QHS Mercury level pending Discussed dangers of cannabis causing anxiety and psychosis Monitor behavior, paranoia, SI 06/06/17 14:00 1. Patient denies feeling paranoid about anything on unit. He is only worried about roommates poisoning him. 2. Patient denies any SI/HI. 3. CCM - patient agrees to continue taking Zyprexa voluntarily. 4. Mercury level still pending - will take up to a week for results 06/07/17 12:53 1. Feeling more "comfortable" on unit. 2. CCM - compliant with meds, improving 3. Mercury level still pending Subjective: Met with patient, reviewed chart and d/w staff. Patient has somewhat brighter affect, more range of affect, smiling at times. He participates in groups and milieu activities. He says he is getting "more comfortable" and "relaxed" on unit. He says he would like to d/c by Thursday AM so he can go to a new job that starts Thursday at noon. He denies any paranoia, no AH/VH, no SI/HI. Objective: Vital Signs Temp Pulse Resp BP Pulse Ox 36.7 C 60 14 128/76 H 96 06/07/17 06:00 06/07/17 06:00 06/07/17 06:00 06/07/17 06:00 06/07/17 06:00 MSE: Affect: Less constricted Mood: "Good" TP: Linear, illogical when talking about mercury poisoning TC: No SI/HI, no paranoia (except regarding poisoning) , no IOR or hallucinations Insight/Judgment: Poor - Time Spent With Patient Time Spent With Patient: 20" - Pending Discharge Pending Discharge Within 24 Hours: No Pending Discharge Within 48 Hours: Yes Pending Discharge Date: 06/09/17 (Possible d/c on Thursday) Pending Discharge Time: 11:00 ICD10 Worksheet Patient Problems: Problems Problem Status Onset Cannabis use disorder, moderate, dependence Acute Hypocalcemia Acute Hypoparathyroidism Acute Schizoaffective disorder Acute Suicidal ideation Acute
[2017-06-07] MEDS: ACETAMINOPHEN 325 MG TAB PO PRN (15:59)
[2017-06-07] MEDS: hydrOXYzine HCL 25 MG TAB PO PRN ×2 (15:59→22:49)
[2017-06-07] MEDS: OLANZapine DISINTEGR 10 MG TAB PO SCH (20:34)
[2017-06-07] MEDS: CALCITRIOL 0.25 MCG CAP PO SCH (20:34)
[2017-06-08 06:26] VITALS: BP 99/58; PULSE 57; TEMP 97.7
[2017-06-08] MEDS: CALCIUM ACETATE 667 MG CAP PO SCH ×2 (08:35→19:58)
[2017-06-08] MEDS: OLANZapine DISINTEGR 5 MG TAB PO SCH (08:36)
[2017-06-08] MEDS: CHOLECALCIFEROL VIT D3 2,000 UNITS TAB/CAP PO SCH ×2 (08:36→19:57)
[2017-06-08] MEDS: HYDROCHLOROTHIAZIDE 25 MG TAB PO SCH (08:37)
[2017-06-08] MEDS ORDERED: OLANZapine DISINTEGR 10 MG TAB PO SCH (08:47)
--- NOTE | 2017-06-08 08:51 | SOAPPROG ---
SOAP Progress Note Assessment/Plan: Assessment: Schizoaffective Disorder Cannabis Use Disorder - severe History of stimulant, hallucinogen, and alcohol use disorders Hypoparathyroidism with hypocalcemia - on PhosLo/Calcium, Vitamin D, Calcitrol Patient admitted on M-1 hold for psychotic symptoms (paranoid ideas of reference , fear of being poisoned with mercury) and suicidal thoughts to jump of a bridge. Patient has a history of depressive symptoms, hypomania, and substance abuse for several years with one past suicide attempt (cut arm one year ago). Patient was using cannabis daily prior to admission. Patient now voluntary. Patient appears euthymic and appropriate and cooperative with medications. Has residual paranoia toward roommates and unwilling to discharge back to home he was staying in. Plan: Change Olanzapine ODT 15mg QHS, no AM dose Provided education about diagnosis, importance of medication compliance after discharge and sobriety and outpatient follow up Discussed dangers of cannabis causing anxiety and psychosis Refer to primary care for medical follow up for hypoparathyroidism and hypocalcemia Refer to [facility] Monitor behavior and symptoms on unit, possible discharge tomorrow AM to skilled nursing 06/08/17 08:52 Subjective: 'alright, better.' Patient reports feeling calm and is happy that his blood test was negative for mercury poisoning. Reports he accepts that his roommates didn't poison him but is fearful of living with them 'I don't trust them.' Reports goal is to discharge tomorrow AM so he can be at work by noon. Reports he is willing to live in a skilled nursing and doesn't want to return to [place]. Reports he is a total of $1000 to pay for food or skilled nursing after discharge. Denies feeling stiff or slow. Denies feeling depressed or hopeless or suicidal. Denies feeling agitated or irritable. Denies racing thoughts or AH. Reports he is willing to quit cannabis/THC but is 'thinking about' using CBD products 'for anxiety' but is unable to describe his anxiety symptoms. Objective: Vital Signs Temp Pulse Resp BP Pulse Ox 36.5 C 57 L 14 99/58 L 96 06/08/17 06:00 06/08/17 06:00 06/08/17 06:00 06/08/17 06:00 06/08/17 06:00 Mercury level: NDA Alert WM, cooperative, calm. Speech soft RRR. Mood 'alright, better.' Affect euthymic, anxious at times. Thoughts organized. Denies SI or HI or AH. Reports fear of roommates but accepts that he wasn't poisoned. Denies violent thoughts. Limited insight. Judgment questionable. Staff report patient calm on unit, slept overnight, cooperative with medication , isolative. - Time Spent With Patient Time Spent With Patient: 25 minutes - Pending Discharge Pending Discharge Within 24 Hours: Yes Pending Discharge Date: 06/09/17 Pending Discharge Time: 11:00 ICD10 Worksheet Patient Problems: Problems Problem Status Onset Cannabis use disorder, moderate, dependence Acute Hypocalcemia Acute Hypoparathyroidism Acute Schizoaffective disorder Acute Suicidal ideation Acute
[2017-06-08] MEDS: CALCITRIOL 0.25 MCG CAP PO SCH (19:56)
[2017-06-09] MEDS: CALCIUM ACETATE 667 MG CAP PO SCH (08:32)
[2017-06-09] MEDS: HYDROCHLOROTHIAZIDE 25 MG TAB PO SCH (08:32)
[2017-06-09] MEDS: CHOLECALCIFEROL VIT D3 2,000 UNITS TAB/CAP PO SCH (08:32)
--- NOTE | 2017-06-09 13:43 | BDS ---
[f rep st] BEHAVIORAL HEALTH DISCHARGE SUMMARY ADMITTING DIAGNOSES: Unspecified schizophrenia spectrum disorder, unspecified bipolar disorder, cannabis use disorder, history of alcohol, hallucinogen, and stimulant use disorders, hypoparathyroidism with hypocalcemia, and suicidal ideation. IDENTIFICATION: This is a 26-year-old, single white male who lives with roommates in [place]. 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 He grew up in [place]. His mother and stepfather live in [place]. He has never been , has no children. BRIEF PSYCHIATRIC HISTORY: The patient apparently had a history of substance abuse in the past several years. He apparently had a history of daily alcohol use, but had not been drinking alcohol regularly prior to admission. He also has a history of abusing stimulants, LSD, hallucinogenic mushrooms, and MDMA in the past, but had not been using these recently. He was using cannabis daily for the past 2 months since moving to [place]. He had a history of 1 suicide attempt several years ago where he cut his wrist. However, he denied past psychiatric hospitalizations or past psychiatric medication trials. He denied any history of violence toward others. He denied any current legal problems, but reported 1 past arrest for cannabis possession and one arrest for skateboarding or longboarding in a restricted area. PAST MEDICAL HISTORY: The patient has a history of congenital hypoparathyroidism with chronic hypocalcemia. He reportedly was taking calcium and vitamin D prior to admission and had been on PhosLo and calcitriol recently as well. He reportedly had been noncompliant with these medications prior to admission. REASON FOR ADMISSION: The patient self-presented to the emergency department. He reported paranoia that he was being poisoned by mercury and that his roommates were poisoning him based upon him finding a silver candlestick with melted silver wax in his room and possibly telepathic messages from this roommates. He also reported depressed mood and suicidal thoughts to jump off a building or a bridge. He also appeared anxious and paranoid in the ER. He reported a history of depressive symptoms as well as hypomanic symptoms in the past when he was interviewed on the unit and this was confirmed by his mother. INITIAL EXAM: He was an ambulatory white male without tremors or weakness. His speech was regular rate and rhythm. His thoughts were tangential and rambling with occasional loose association. He had paranoid ideas of reference , paranoia about being poisoned. He had suicidal thoughts to jump off a bridge or a building. He denied violent thoughts. He denies auditory hallucinations. His memory was fair. His insight was poor. His judgment was impaired. HOSPITAL COURSE: The patient in the emergency department was found to have hypocalcemia and received IV calcium as well as vitamin D. The patient was seen by the hospitalist. He was given oral calcium, PhosLo, vitamin D, and calcitriol as well as hydrochlorothiazide. The pharmacist was able to verify that he had been receiving these medications in the past. The patient was cooperative with these medications and did not complain of any physical symptoms on the unit. The patient had psychotic symptoms including paranoid ideas of reference, paranoia about being poisoned, fear of returning to his home due to fear that his roommates were conspiring to harm him. He also mentioned a conspiracy of 'a fabiano mafia' and 'freemasons' were stalking him in the community. He also reported past depressive symptoms and past hypomanic symptoms. The patient was agreeable to start olanzapine as a mood stabilizer and antipsychotic. The patient tolerated this medication. This was increased up to 15mg a day. The patient did not have any major side effects. He slept well with this medication. He had improved mood symptoms. Reported no longer feeling hopeless or suicidal. He reported remission of his paranoia. He became less tangential in his thought process. The patient did have a blood test to check for his mercury level as he was extremely paranoid that he had been poisoned with mercury. This was negative. The patient was isolative on the unit and otherwise cooperative. He had some labile affect and erratic behavior, but no aggression or violence or self-harm. He eventually was able to calmly attend groups and show improved insight into his mental health condition. He reported no motivation to stop using cannabis, even though cannabis can cause psychosis and anxiety. He was given extensive education about the dangers of cannabis. The patient's mother in [place] was notified of the patient's admission. The patient reported he did not want to return to his home where he was living with roommates in [place], [place]. 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 The patient did report he had $ 1000 dollars in savings that he could use toward food and housing after discharge. The patient repeatedly declined to return to [place] where his mother lives. During the course of hospitalization, the patient had improvement in mood and affect, as well as improvement in thought organization, a reduction in tangential thinking, and a remission of his paranoid ideas of reference. He also had remission of his suicidal thoughts. LABS: In the emergency department, the patient had hypocalcemia including a calcium level of 5.2, and again, he received IV calcium in the emergency department and was started on oral calcium, vitamin D, and PhosLo. His phosphorus was elevated at 7.1, TSH 2.1, glucose 93, creatinine 0.8, sodium 141 , potassium 4.6. His urine toxicology test was only positive for cannabis. It was negative for everything else, negative for alcohol. His serum mercury level was nondetectable. His CBC was normal with a white blood cell count 7.1, hemoglobin 15.8, platelet count 207. The patient in the emergency department had an EKG due to his severe hypocalcemia. This showed that initially on June 02, he had a heart rate of 54, QTc interval 512. It showed sinus rhythm with borderline intraventricular conduction delay with left axis deviation and nonspecific T- wave abnormalities. This was all thought to be secondary to hypocalcemia. CONDITION AT DISCHARGE: He is an alert white male in no acute distress. He is ambulatory and cooperative without tremors or weakness. His speech is regular rate and rhythm. His mood is "pretty good." His affect is euthymic. His thoughts are organized. He denies any thoughts to hurt himself or others. He denies paranoia or hallucinations. His memory is fair. His insight is fair. His judgment is appropriate. DISCHARGE DIAGNOSES: Schizoaffective disorder, bipolar type. Cannabis use disorder, severe. History of alcohol, stimulant, and hallucinogen use disorders - in remission Hypoparathyroidism with hypocalcemia. DISCHARGE MEDICATIONS: He is on olanzapine 15 mg by mouth at bedtime. Vitamin D3 2000 units twice a day by mouth. Calcitriol 0.5 mcg p.o. q.h.s. PhosLo 2001 mg p.o. b.i.d., hydrochlorothiazide 25 mg p.o. daily. He is also on over-the- counter omega-3 fatty acids 1000 mg daily and a vitamin B complex 1 tablet daily. FOLLOWUP: The patient was given information about [facility] for medical followup for his hypocalcemia and hypoparathyroidism. He was also referred to [facility] for psychiatric followup. DISPOSITION: The patient will be leaving independently to take the bus back to [facility] to get his car. 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 LEGAL STATUS: He was admitted on an M1 hold, but then signed a form just to be in the hospital voluntarily. He will be discharged to be receiving outpatient treatment on a voluntary basis. /[id number]/MODL MTDD
== END 2017-06-09 10:10 | disposition home or self-care (01) | DRG 885 ==
LOC: BBEH 06-02 12:10
DX: F29 Unspecified psychosis not due to a substance or known physiological condition (principal); F31.9 Bipolar disorder, unspecified; F12.20 Cannabis dependence, uncomplicated; F15.90 Other stimulant use, unspecified, uncomplicated; E20.8 Other hypoparathyroidism
CPT/HCPCS: 80305; 83825-90; G0480; J0610

== ENCOUNTER 2018-07-20 19:22 | Observation (INO) | payer OTHER ==
[2018-07-20] MEDS ORDERED: CALCIUM GLUC 10% 1 GM/10 ML VIAL IVP ONE (19:42)
--- NOTE | 2018-07-20 19:57 | EDPHY ---
H & P Stated Complaint: sent by PCP d/t low calcium of 4.4 and low PTH Time Seen by Provider: 07/20/18 19:35 HPI/ROS: CHIEF COMPLAINT: Hypocalcemia Limitations: Difficult historian HISTORY OF PRESENT ILLNESS: 27-year-old male with schizophrenia and congenital hypoparathyroidism presents with hypocalcemia. He is supposed to take Calcitrol daily, but does not believe in medications and has decided to treat himself with natural medications. Recently constipated. He denies weakness or paresthesias. He recently had an upper respiratory infection, now resolved. No fever. Routine blood tests today revealed hypocalcemia. REVIEW OF SYSTEMS: complete 10 point ROS reviewed and is negative except for the noted elements in the HPI - Personal History Current Tetanus/Diphtheria Vaccine: Yes - Medical/Surgical History Hx Asthma: No Hx Chronic Respiratory Disease: No Hx Diabetes: No Hx Cardiac Disease: No Hx Renal Disease: No Hx Cirrhosis: No Hx Alcoholism: No Hx HIV/AIDS: No Hx Splenectomy or Spleen Trauma: No Other PMH: congenital hypoparathyroid, hypothyroidism. Schizophrenia - Social History Smoking Status: Former smoker - Physical Exam Exam: General Appearance: Alert, pleasant Eyes: Pupils equal and round, no conjunctival pallor ENT, Mouth: Mucous membranes moist Neck: Normal inspection Respiratory: Lungs are clear to auscultation Cardiovascular: Regular rate and rhythm Gastrointestinal: Abdomen is soft and nontender Neurological: A&O, nonfocal, normal gait Skin: Warm and dry, no rash Extremities: Normal inspection Psychiatric: Odd affect Constitutional: Initial Vital Signs Heart Rate 80 07/20/18 19:24 Respiratory Rate 18 07/20/18 19:24 Blood Pressure 105/77 07/20/18 19:24 O2 Sat (%) 93 07/20/18 19:24 O2 Delivery Mode Room Air Allergies/Adverse Reactions: No Known Allergies Allergy (Unverified 06/01/17 22:44) Home Medications: Medication Instructions Recorded Herbals/Supplements -Info Only 1 ea PO DAILY 07/20/18 Medical Decision Making - Diagnostics EKG Interpretation: EKG interpreted by me reveals normal sinus rhythm, rate 65, incomplete right bundle branch block, QT interval 0.50. Interpretation: Abnormal EKG ED Course/Re-evaluation: This pt presents with severe hypocalcemia secondary to medication noncompliance. Adherence to medication regimen complicated by schizophrenia and delusions about risks of medications. Extensive discussion with pt and friend about importance of medication compliance. After this discussion, it became more clear that he is unlikely to adhere to medication regimen in future. Fortunately, he is fairly asymptomatic, suspect that he is usually hypocalcemic. EKG reveals NSR and mild QT prolongation only. Calcium gluconate 1 gm IV given. Vitamin d 5000u orally given. nurse charge rn: NSR throughout. Will admit to the SDU for monitoring and replenishment of calcium. The hospitalist service was consulted for admission. This pt utilized 35 minutes of critical care time exclusive of unbundled procedures. Time spent in discussions with pt, medication ordering, discussions with consultants, review of community affairs manager. Differential Diagnosis: includes though not limited to dysrhythmia, tetany, altered mental status, seizure. - Data Points Medications Given: Calcitriol (Calcitriol) 0.25 mcg PO DAILY [facility] Stop: 01/16/19 20:29 Last Admin: 07/21/18 10:06 Dose: Not Given Calcium Acetate (Phoslo) 667 mg PO TIDMEAL MICHELLE Stop: 01/17/19 07:59 Last Admin: 07/21/18 12:56 Dose: Not Given Enoxaparin Sodium (Lovenox) 40 mg SC DAILY MICHELLE Stop: 01/17/19 08:59 Last Admin: 07/21/18 10:07 Dose: Not Given Discontinued Medications Calcium Gluconate (Calcium Gluconate) 1 gm IVP EDNOW ONE Stop: 07/20/18 19:43 Last Admin: 07/20/18 20:08 Dose: 1 gm Cholecalciferol (Vitamin D) 5,000 units PO EDNOW ONE Stop: 07/21/18 19:53 Last Admin: 07/20/18 20:41 Dose: 5,000 units Ergocalciferol (Vitamin D2) 50,000 i.unit PO ONCE ONE Stop: 07/21/18 09:01 Last Admin: 07/21/18 10:07 Dose: Not Given Calcium Gluconate 2 gm/ (Dextrose) 50 mls @ 100 mls/hr IV ONCE ONE Stop: 07/20/18 21:52 Last Admin: 07/21/18 03:41 Dose: Not Given Calcium Gluconate 1 gm/ (Dextrose) 60 mls @ 100 mls/hr IV ONCE ONE Stop: 07/20/18 21:58 Last Admin: 07/20/18 22:05 Dose: 60 mls Calcium Gluconate (Calcium Gluconate 1 Gm (Premix)) 50 mls @ 100 mls/hr IV ONCE ONE Stop: 07/21/18 10:40 Last Admin: 07/21/18 10:30 Dose: Not Given Calcium Gluconate 1 gm/ Sodium (Chloride) 50 mls @ 100 mls/hr IV ONCE ONE Stop: 07/21/18 10:59 Last Admin: 07/21/18 10:52 Dose: 50 mls Departure - Departure Disposition: [facility] In[facility] Acute Clinical Impression: Hypocalcemia Hypoparathyroidism Qualifiers: Hypoparathyroidism type: other hypoparathyroidism Qualified Code(s): E20.8 - Other hypoparathyroidism Schizoaffective disorder Qualifiers: Schizoaffective disorder type: bipolar Qualified Code(s): F25.0 - Schizoaffective disorder, bipolar type Condition: Serious
[2018-07-20] MEDS: CHOLECALCIFEROL VIT D3 2,000 UNITS TAB/CAP PO ONE ×2 (20:40→20:41)
[2018-07-20] MEDS ORDERED: ACETAMINOPHEN 325 MG TAB PO PRN (21:21)
[2018-07-20] MEDS ORDERED: CALCIUM GLUCONATE 2 GM in D5W 50 ML IV ONE (21:23)
[2018-07-20] MEDS: CALCITRIOL 0.25 MCG CAP PO SCH (21:45)
--- NOTE | 2018-07-20 21:53 | PDGENHP ---
History and Physical - Chief Complaint hand tingling - History of Present Illness 27yo M with history of schizoaffective disorder, hypoparathyroidism with hypocalcemia presents with hand tingling. States symptoms started about 2 weeks ago and are consistent with his prior episodes of hypocalcemia. Reports being diagnosed with hypoparathyroidism in his teens and has been prescribed calcium, calcitriol, and vitamin D supplements in the past but hadn't been taking until his symptoms started recently. He established with a PCP today (Riya Hargrove) who sent off labs which showed a severely low calcium level as well as low PTH and elevated phosphorous. He reports hand and leg tingling, hand cramping, loose stools and lots of bloating. No perioral numbness, seizures, palpitations , change in mood. He reports a chronic history of wheezing which hasn't changed. No difficulty breathing. In the ED, his ionized calcium was 0.62. He was given 1g IV calcium gluconate and is being admitted for further management. Case discussed with ED physician Aylin Marquez. History Information - Allergies/Home Medication List Allergies/Adverse Reactions: No Known Allergies Allergy (Unverified 06/01/17 22:44) Home Medications: Herbals/Supplements -Info Only 1 ea PO DAILY 07/20/18 [Last Taken Unknown] I have personally reviewed and updated: family history, medical history, social history, surgical history - Past Medical History Additional medical history: schizoaffective disorder (bipolar type), congenital hypoparathyroidism with hypocalcemia, history of alcohol, stimulant and hallucinogen use disorders in remission - Surgical History Additional surgical history: wisdom tooth extraction - Family History Additional family history: no family history of hypoparathyroidism, hypocalcemia , or other endocrine disorders; grandmother with premature CAD - Social History Smoking Status: Former smoker Alcohol Use: None Drug Use: None Additional social history: Just started working at [employer] in [employer]. Originally from [place], moved to [facility] 04/2017. Girlfriend at bedside Review of Systems Review of Systems: ROS: 10pt was reviewed & negative except for what was stated in HPI & below Physical Exam Physical Exam: Temp Pulse Resp BP Pulse Ox 36.8 C 80 18 105/77 93 07/20/18 19:27 07/20/18 19:27 07/20/18 19:27 07/20/18 19:27 07/20/18 19:27 Constitutional: no apparent distress, appears nourished, not in pain Eyes: PERRL, anicteric sclera, EOMI Ears, Nose, Mouth, Throat: moist mucous membranes, hearing normal, ears appear normal, no oral mucosal ulcers Cardiovascular: regular rate and rhythym, no murmur, rub, or gallop, No edema Respiratory: no respiratory distress, no rales or rhonchi, clear to auscultation Gastrointestinal: normoactive bowel sounds, soft, non-tender abdomen, no palpable masses Genitourinary: no bladder fullness, no bladder tenderness Skin: warm, normal color, no rashes or abrasions, no fluctuance, no induration, No mottled Musculoskeletal: other (negative spasm with tapping facial nerve or median nerve ) Neurologic: AAOx3 Psychiatric: interacting appropriately, not anxious, not encephalopathic, thought process linear Lab Data & Imaging Review Ionized Calcium 0.62 MMOL/L (1.12-1.30) L* 07/20/18 19:45 Magnesium 1.9 mg/dL (1.6-2.3) 07/20/18 19:45 Assessment & Plan Assessment: 27yo M with history of schizoaffective disorder, hypoparathyroidism with hypocalcemia presents with hand tingling found to be severely hypocalcemic. Plan: 1. Severe hypocalcemia: He is relatively asymptomatic despite his ionized calcium being extremely low indicating this is a chronic issue. He has not had a seizure. His QTc is 500. This is due to his hypoparathyroidism and him not being compliant with appropriate supplementation. - Telemetry - Will give another 1g calcium gluconate, recheck serum and ionized calcium q6h - Start calcitriol - Continue vitamin D - Consider thiazide if not improving 2. Hypoparathyroidism: With low PTH and calcium, elevated phos. Reportedly congenital issue. - Start PhosLo - Needs outpatient endocrine follow up 3. Schizoaffective disorder: Not on any medications for this. VTE ppx: LMWH Code: full Diet: regular Dispo: Admit to step down under observation
[2018-07-20] MEDS ORDERED: CALCIUM GLUCONATE 1 GM in D5W 50 ML IV ONE (21:54)
--- NOTE | 2018-07-20 23:15 | CPEKG ---
Test Reason : OPEN Blood Pressure : / mmHG Vent. Rate : 065 BPM Atrial Rate : 065 BPM P-R Int : 192 ms QRS Dur : 116 ms QT Int : 486 ms P-R-T Axes : 035 050 -28 degrees QTc Int : 506 ms Sinus rhythm Incomplete right bundle branch block Confirmed by Virginia Marquez ([id number]) on 07/20/2018 11:14:30 PM Referred By: Confirmed By:Virginia Marquez
[2018-07-21] MEDS ORDERED: ERGOCALCIFEROL 50,000 I.UNIT CAP PO ONE (09:00)
[2018-07-21] MEDS ORDERED: ERGOCALCIFEROL 50,000 I.UNIT CAP PO SCH (09:00)
[2018-07-21] MEDS ORDERED: ENOXAPARIN 40 MG/0.4 ML SYR SC SCH (09:00)
[2018-07-21] MEDS: CALCITRIOL 0.25 MCG CAP PO SCH (10:06)
[2018-07-21] MEDS: CALCIUM ACETATE 667 MG CAP PO SCH ×2 (10:07→12:56)
[2018-07-21] MEDS ORDERED: CALCIUM GLUCONATE 50 ML IV ONE ×2 (10:11→13:12)
[2018-07-21] MEDS ORDERED: CALCIUM GLUCONATE 1 GM in NS 50 ML IV ONE (10:30)
[2018-07-21 11:57] VITALS: BP 102/60
[2018-07-21] MEDS ORDERED: CALCIUM GLUCONATE 1 GM in D5W 50 ML IV ONE (13:30)
--- NOTE | 2018-07-21 15:29 | GCON ---
CRITICAL CARE CONSULTATION DATE OF CONSULTATION: 07/21/2018 HISTORY OF PRESENT ILLNESS: This patient is a 27-year-old male who has chronic hypoparathyroidism re quiring chronic calcium supplementation. He also has schizoaffective disorder and is thought to use hallucinogenic in the past. He has moved to [place] I believe in recent history and decided to disc ontinue his medications and told me this morning that he did believe in pharmacology and would prefer to use [id number] dietary supplements. Subsequently, he came to the hospital complaining of b loating, as well as both upper and lower extremity paresthesias, and he was found to have an ionized calcium of 0.6 in the emergency department. He was treated twice with 1 g of calcium gluconate and h is calcium has not gone up at all, in fact, is decreased. The QTc on his EKG was 506. There were no mental status changes or chest pain. REVIEW OF SYSTEMS: Otherwise negative. PAST MEDICAL HISTORY: As stated above with: 1. Schizoaffective disorder. 2. Hypoparathyroidism. 3. Hypocalcemia. 4. Alcoholism. 5. Hallucinogenic drug use. PAST SURGICAL HISTORY: None. SOCIAL HISTORY: He has history of tobacco. FAMILY HISTORY: Noncontributory . CURRENT MEDICATIONS: Include Tylenol, calcitriol, PhosLo, and Lovenox. PHYSICAL EXAMINATION: VITAL SIGNS: Blood pressure 106/72, heart rate of 83, respirations 16, oxygen saturation 94% on room air. GENERAL: He was awake, alert, in no apparent distress, able to speak f ull sentences without using accessory muscles for breathing. HEENT: Pupils equally round and reacti ve to light. Nonicteric and noninjected. Mucous membranes moist without erythema or exudate. NECK: Supple without adenopathy or jugular vein distention. RESPIRATORY: Breath sounds were clear to au scultation bilaterally without wheeze or rales. HEART: Regular rate and rhythm without murmurs, rub s, or gallops. ABDOMEN: Soft, nontender, nondistended without hepatosplenomegaly. EXTREMITIES: No clubbing, cyanosis, or edema. NEUROLOGIC: Nonfocal, including cranial nerves, deep tendon reflexes . SKIN: Warm and dry, without evidence of rash. He has multiple tattoos. OBJECTIVE DATA: Includes his ionized calcium, which was 0.62 on arrival; this morning at 9 o'clock w as 0.61. The rest of his basic metabolic panel was normal. EKG is described above with right bundle branch block. ASSESSMENT/PLAN: Severe hypocalcemia that is in fact symptomatic. The patient has refused additiona l therapy despite the risk of coma and seizure, in addition to cardiac arrhythmias. I would strongly encourage him to see an graves registration specialist about this issue and we will have to discuss with him the di fferences between being treated with [id number] dietary supplements and the benefits of pharmac ology. If he continues to refuse therapy, we may have to involve psychiatry since this could be rela lavinia to his underlying schizoaffective disorder. In the meantime, we will continue further observatio n. /[id number]/MODL
--- NOTE | 2018-07-21 17:41 | PDDCSUM ---
Discharge Summary Discharge Summary: Date of Admission: 07/20/2018 Date of Discharge: 07/21/2018 Consultants: paramedic supervisor (Dr Tyree Bonilla) Procedures/Studies: none Discharge Diagnoses: 1. Severe symptomatic hypocalcemia 2. Chronic hypoparathyroidism (likely congenital) 3. ? Schizoaffective disorder Brief Hospital Course: 27yo M with history of ?schizoaffective disorder and congenital hypoparathyroidism with chronic hypocalcemia. He recently established with a PCP (Riya Hargrove) who checked labs which showed a serum calcium of 4.6 and ionized calcium of 0.62. He presented to the ED with bilateral hand/arm tingling and abdominal bloating. He had been refusing to take prescriptions medications to treat his hypoparathyroidism, preferring [id number] supplements. His QTc was roughly 510. He was given several doses of IV calcium gluconate overnight in addition to vitamin D and calcitriol however his calcium levels didn't really budge. I advised the patient that he should stay for additional calcium to ensure his levels were at least improving and heading in the right direction but he became upset and refused to receive any other treatments in the hospital. He left against medical advice. Of note, it is very likely that his severe hypocalcemia is a chronic issue given his lack of severe symptoms (ie. seizures). I did send prescriptions for calcium, vitamin D and calcitriol to this pharmacy. We also gave him a # to set up an appointment with an door manager and encouraged him to see his PCP. Medications: Please refer to EMR. Follow Up Plan: 1. Establish with door manager 2. Continue to follow with PCP Physical Exam: Vitals reviewed, normotensive. Alert and oriented, no focal neurologic deficits, normal deep tendon reflexes, rrr without m/r/g, lungs clear , abdomen soft, no rashes or edema.
--- NOTE | 2018-07-21 23:06 | CPEKG ---
Test Reason : OPEN Blood Pressure : / mmHG Vent. Rate : 060 BPM Atrial Rate : 061 BPM P-R Int : 194 ms QRS Dur : 108 ms QT Int : 512 ms P-R-T Axes : 045 -35 -51 degrees QTc Int : 512 ms Sinus arrhythmia Incomplete right bundle branch block Nonspecific T abnormalities, inferior leads Confirmed by Arnulfo Millard ([id number]) on 07/21/2018 11:05:46 PM Referred By: Confirmed By:Arnulfo Millard
== END 2018-07-21 14:30 | disposition left against medical advice (07) ==
LOC: INTOOBSV 20:09 → F2N 23:16
PROVIDERS: ADMIT Internal Medicine; ATTEND Internal Medicine
DX: E20.8 Other hypoparathyroidism (principal); F25.0 Schizoaffective disorder, bipolar type; Z87.891 Personal history of nicotine dependence; Z91.14 Patient's other noncompliance with medication regimen
CPT/HCPCS: 93005; 96374; 96375; 96376; 99291; G0378; J0610